=== PATIENT | male | born 1955 | race Caucasian/White ===

== ENCOUNTER → 2016-09-18 | Outpatient (CLI) | payer BC | END | disposition home or self-care (01) | LOC: PCVCIMAG 10:09 | PROVIDERS: ATTEND Internal Medicine | DX: I48.91 Unspecified atrial fibrillation (principal); Z82.49 Family history of ischemic heart disease and other diseases of the circulatory system | CPT/HCPCS: 93325; 93351 ==

== ENCOUNTER → 2018-10-28 | Outpatient (CLI) | payer BC ==
--- NOTE | 2018-10-28 10:31 | PCVCIMAG ---
APPROVED REPORT Study performed: 10/28/2018 09:31:37 Exam: Stress Echocardiogram Indication: Paroxysmal Atrial Fibrillation, Hyperlipidemia Patient Location: Echo lab Stress Nurse: Sara Holman RN Room #: 2 Status: routine Ht: 5 ft 11 in HR: 72 bpm BP: 118/82 mmHg Rhythm: NSR Medical History Medical History: Atrial Fibrillation, Hyperlipidemia Cardiac Risk Factors: Hyperlipidemia Previous Cardiac Procedures: none Pretest Chest Pain Characteristics: No chest pain Exercise History: Physically active Procedure The patient underwent an Exercise Stress Test using the Umer Protocol. Blood pressure, heart rate, and EKG were monitored. An Echocardiogram was performed by chemical waste management technician in four stages in quad fashion. At peak stress, four selected images were obtained and placed side by side with resting images for comparison. Stress Test Details Stress Test: Exercise stress testing was performed using a Umer protocol. HR Resting HR: 69 bpmMax Heart Rate (APMHR): 155 bpm Max HR Achieved: 150 bpmTarget HR (85% APMHR): 131 bpm % of APMHR: 96 Recovery HR: 82 bpm HR response to stress: Normal HR response to stress BP Resting BP: 118/82 mmHg Max BP: 170/76 mmHg Recovery BP: 138/68 mmHg BP response to stress: Normal blood pressure response to stress. ECG Resting ECG: Clear Stress ECG: Sinus Rhythm, NSSTT changes ST Change: Strongly positive- known false positive EKG changes with exercise Maximum ST Deviation: 3 mm Arrhythmia: Rare PAC,PVC Recovery ECG: Sinus Rhythm, nonspecific ST-T abnormalities Recovery ST Change: Hx of false positive EKG changes Recovery ST Deviation: 2.5 mm Recovery Arrhythmia: None Clinical Reason for Termination: Maximal effort Stress Symptoms: dyspnea Exercise duration: 9 min 54 sec Highest Stage Achieved: Stage 4: 4.2 mph at 16% grade. Exercise capacity: 13.0 METs Overall Exercise Capacity for Age: Good Scale: Active Angina Score: None No complications. Stress ECG Conclusion The patient exercised according to the UMER protocol for9:54 mins; achieving a work level of 13.0 METS. The resting heart rate of 69 bpm onur to a maximum heart rate of 150 bpm. This value represent 96% of the maximal, age-predicted heart rate. The resting blood pressure of 118/82 mmHg, onur to a maximum blood pressure of 170/76mmHg. The exercise test was stopped due to fatigue and dyspnea. Hutson Treadmill Score is -6.0 which is Moderate risk. Pre-Stress Echo The resting Echocardiogram showed normal left ventricular contractility with an estimated Ejection Fraction of about 55-60%. Normal wall motion in all segments on baseline images. Post-Stress Echo The stress Echocardiogram showed normal left ventricular contractility with an estimated Ejection Fraction of about 65-70%. Normal augmentation of wall motion in all segments on post stress images. Clinical No clinical or ECG evidence for ischemia. Conclusion Clinical Response: Non-ischemic Exercise Capacity: Superior Stress ECG Response: Ischemic Stress Echo Images: Non-ischemic No clinical or echocardiographic evidence for ischemia. EKG has historically been abnormal with exercise consistent with a false positive response. No echocardiographic evidence for exercise induced ischemia. Normal stress echocardiogram with maximal exercise stress. <Conclusion> No clinical or echocardiographic evidence for ischemia. EKG has historically been abnormal with exercise consistent with a false positive response. No echocardiographic evidence for exercise induced ischemia. Normal stress echocardiogram with maximal exercise stress.
== END | disposition home or self-care (01) ==
LOC: PCVCIMAG 10:00
PROVIDERS: ATTEND Internal Medicine
DX: I48.0 Paroxysmal atrial fibrillation (principal); E78.5 Hyperlipidemia, unspecified
CPT/HCPCS: 93325; 93351